=== PATIENT | male | born 2000 | race Hispanic/Latino ===

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

== ENCOUNTER 2020-05-28 11:24 | Emergency (ER) | payer SELFPAY ==
[2020-05-28 18:25] LABS: SARS-CoV-2 MS2 Positive; SARS-CoV-2 N Gene Positive; SARS-CoV-2 S Gene Positive; SARS-CoV-2 by NAA DETECTED (NotDetected); SARS-CoV-2 orf1ab Positive
== END 2020-05-28 12:00 | disposition home or self-care (01) ==
LOC: ERS 11:24
DX: U07.1 COVID-19 (principal); J45.909 Unspecified asthma, uncomplicated
CPT/HCPCS: 87635; 99283; U0003

== ENCOUNTER 2021-07-22 07:12 | Emergency (ER) | payer SELFPAY ==
[2021-07-22] MEDS ORDERED: Dexamethasone 4 mg/ml Vial ONE (07:48)
[2021-07-22] MEDS ORDERED: Dexamethasone 4 MG TAB ONE (07:48)
[2021-07-22 19:50] LABS: SARS-CoV-2 PCR by NAA Not Detected (NotDetected)
== END 2021-07-22 08:00 | disposition home or self-care (01) ==
LOC: ERS 07:12
DX: J06.9 Acute upper respiratory infection, unspecified (principal); Z20.822 Contact with and (suspected) exposure to COVID-19
CPT/HCPCS: 71045; J1100; J8540; U0003; U0005